=== PATIENT | female | born 1995 | race Caucasian/White ===

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

== ENCOUNTER → 2018-04-14 | Outpatient (CLI) | payer BC ==
--- NOTE | 2018-04-15 07:33 | US ---
EXAMINATION TYPE: US transvaginal DATE OF EXAM: 04/14/2018 COMPARISON: NONE CLINICAL HISTORY: N91.2 Amenorrhea. Patient states not having had a period since February, TECHNIQUE: Transvaginal (TV). Date of LMP: 02/18/2019, G0 EXAM MEASUREMENTS: Uterus: 6.4 x 3.0 x 3.2 cm Endometrial Stripe: 0.3 cm Right Ovary: 2.8 x 1.6 x 1.4 cm Left Ovary: 2.6 x 1.6 x 1.3 cm 1. Uterus: Anteverted wnl 2. Endometrium: wnl 3. Right Ovary: wnl 4. Left Ovary: wnl 5. Bilateral Adnexa: wnl 6. Posterior cul-de-sac: no free fluid Cervix- fluid seen within cervical canal IMPRESSION: No significant abnormality seen. Small amount of fluid within the endocervical canal.
== END | disposition home or self-care (01) ==
LOC: RADUSWWP 15:22
PROVIDERS: ATTEND Family Medicine
DX: N91.2 Amenorrhea, unspecified (principal)
CPT/HCPCS: 76830

== ENCOUNTER 2019-01-22 17:51 | Outpatient (CLI) | payer BC ==
[2019-01-22 19:43] VITALS: BP 130/60; PULSE 86; RESP 15; TEMP 98.2
--- NOTE | 2019-01-23 07:16 | P.MSEPDOC ---
Presenting Problems - Arrival Data Date of Arrival on Unit: 01/22/19 Time of Arrival on Unit: 17:51 Mode of Transport: Wheelchair - Complaint OB-Reason for Admission/Chief Complaint: Acute Nausea/Vomiting Comment: Pt here with complaints of abdominal cramping and upper abdominal tightness Medical History - Information : 1 Para: 0 Term: 0 : 0 Abortions: Spontaneous or Elective: 0 Number of Living Children: 0 - Gestational Age Gestational Age by VI (wks/days): 26 Weeks and 3 Days Review of Systems - Review of Systems Constitutional: No problems Breast: No problems ENT: No problems Cardiovascular: No problems Respiratory: No problems Gastrointestinal: No problems Genitourinary: No problems Musculoskeletal: No problems Neurological: No problems Skin: No problems Vital Signs - Temperature Temperature: 98.2 F Temperature Source: Temporal Artery Scan - Pulse Pulse Oximetery Pulse Rate: 86 Pulse Assessment Method: Pulse Oximetry - Respirations Respiratory Rate: 15 Oxygen Delivery Method: Room Air O2 Sat by Pulse Oximetry: 99 - Blood Pressure Right Arm Blood Pressure: 130/60 Blood Pressure Mean: 83 Blood Pressure Source: Automatic Cuff Medical Screen Scoring (Pre) - Cervical Exam Dilation: 0 cm = 0 Membranes: Intact - Uterine Contractions Frequency: N/A Duration: N/A Intensity: N/A - Maternal Vital Signs Maternal Temperature: N/A Maternal Blood Pressure: N/A Signs of Preeclampsia: Nausea/Vomiting = 1, Epigastric Pain = 1 Maternal Respirations: N/A - Maternal Trauma Maternal Trauma: N/A - Assessment - Baby A Baseline FHR: 140 Heart Rate - NICHD Category: Category I (Normal) = 0 NST: Reactive Position: N/A Station: N/A - Total Score - Baby A Total Score - Baby A: 2 - Total Score - Baby B Total Score - Baby B: 2 - Total Score - Baby C Total Score - Baby C: 2 - Level of Risk - Baby A Level of Risk - Baby A: Low (0-5) - Level of Risk - Baby B Level of Risk - Baby B: Low (0-5) - Level of Risk - Baby C Level of Risk - Baby C: Low (0-5) Physician Notification (Pre) - Physician Notified Physician Notified Date: 01/22/19 Physician Notified Time: 18:15 New Order Received: Yes - Notification Comment Comment: Report given to Sanjay per previous RN. Orders received to obtain FFN, check patient, and observe for an hour. If everything is within normal limits and there are no further concerns patient may be discharged home. Disposition - Disposition OB Disposition: Discharge to home, Written follow up instructions reviewed Discharge Date: 01/22/19 Discharge Time: 19:40 I agree with the RN Medical Screening Exam: Yes Risk & Benefit of care provided described in d/c instruction: Yes Diagnosis: UNSPECIFIED ABDOMINAL PAIN (Patient seen in triage with complaints of upper abdominal discomfort. There was no evidence of labor or obstetrical concerns. Patient therefore was evaluated and then sent to the ER to have further evaluation of her epigastric discomfort.)
== END 2019-01-22 19:40 | disposition home or self-care (01) ==
LOC: FBPOP 17:51
PROVIDERS: ATTEND Obstetrics & Gynecology
DX: O99.89 Other specified diseases and conditions complicating pregnancy, childbirth and the puerperium (principal); R10.9 Unspecified abdominal pain; Z3A.26 26 weeks gestation of pregnancy
CPT/HCPCS: 99213

== ENCOUNTER 2019-03-30 11:43 | Outpatient (CLI) | payer BC ==
[2019-03-30 12:06] VITALS: RESP 16; TEMP 97.8
[2019-03-30 12:27] LABS: Basophils % (A) 0 %; Eosinophils # (A) 0.2 k/uL (0-0.7); Eosinophils % (A) 3 %; HCT 34.5 % (34.0-46.0); HGB 11.2 gm/dL (11.4-16.0); Lymphocytes # (A) 1.9 k/uL (1.0-4.8); Lymphocytes % (A) 21 %; MCH 27.5 pg (25.0-35.0); MCHC 32.6 g/dL (31.0-37.0); MCV 84.5 fL (80.0-100.0); Mean Platelet Volume 8.1; Monocytes # (A) 0.4 k/uL (0-1.0); Monocytes % (A) 5 %; Neutrophils # (A) 6.3 k/uL (1.3-7.7); Neutrophils % (A) 70 %; Platelet Count 251 k/uL (150-450); RBC 4.08 m/uL (3.80-5.40); RDW 13.1 % (11.5-15.5); WBC 9.1 k/uL (3.8-10.6)
[2019-03-30 12:34] VITALS: PULSE 86
[2019-03-30 12:46] LABS: ALT 11 U/L (4-34); AST 17 U/L (14-36); African American GFR (CKD) >90 (>60 ml/min/1.73 sqM); Blood Urea Nitrogen 8 mg/dL (7-17); LDH 345 U/L (313-618); Non-African American GFR(CKD) >90 (>60 ml/min/1.73 sqM); Uric Acid 5.8 mg/dL (3.7-7.4)
[2019-03-30 13:13] LABS: Appearance,Urine Clear (Clear); Bacteria,Urine Rare /hpf; Bilirubin,Urine Negative (Negative); Blood,Urine Small (Negative); Color,Urine Yellow; Glucose,Urine (UA) Negative (Negative); Ketones,Urine Negative (Negative); Leukocyte Esterase,Urine Moderate (Negative); Mucus,Urine Few /hpf; Nitrite,Urine Negative (Negative); PH, Urine 6.5 (5.0-8.0); Protein,Urine Trace (Negative); Specific Gravity,Urine 1.023 (1.001-1.035); Squamous Epithelial Cell,Urine 6 /hpf (0-4); Urobilinogen,Urine <2.0 mg/dL (<2.0); WBC,Urine 8 /hpf (0-5)
[2019-03-30 13:30] VITALS: BP 113/59
== END 2019-03-30 13:51 | disposition home or self-care (01) ==
LOC: FBPOP 11:43
PROVIDERS: ATTEND Obstetrics & Gynecology
DX: O13.9 Gestational [pregnancy-induced] hypertension without significant proteinuria, unspecified trimester (principal); Z3A.00 Weeks of gestation of pregnancy not specified
CPT/HCPCS: 59025; 81001; 82565; 82570; 83615; 84156; 84450; 84460; 84520; 84550; 85025; 99215

== ENCOUNTER 2019-04-07 05:51 | Inpatient (IN) | payer BC, OTHER ==
--- NOTE | 2019-04-06 19:06 | P.HPOB ---
History of Present Illness H&P Date: 04/06/19 Chief Complaint: Gestational hypertension This is a 23 y.o. female, 1, para 0, with an estimated date of confinement of 04/27/2019, estimated gestational age of 37-1/7 weeks, who presents for induction of labor due to gestational hypertension. She has been experiencing elevated blood pressures for the last week. She was sent to triage for workup last week and all of her labs were normal. Her blood pressure today is 140/80 with negative protein. She denies headaches, but gets occasional blurry vision. She has irregular contractions, but does feel pressure. labs: GC/Chlamydia/Trichomonas-neg Hepatitis B surface antigen-neg RPR-NR Rubella-immune Blood type-A+ Antibody screen-neg HIV-NR Hemoglobin-11.4 Random glucose-79 Quad screen-neg 1 hr. 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 Works at [employer] Review of Systems Constitutional: Denies chills, Denies fever Eyes: bilateral blurred vision (occ), denies pain Ears, nose, mouth and throat: Denies headache, Denies sore throat Cardiovascular: Denies chest pain, Denies shortness of breath Respiratory: Denies cough Gastrointestinal: Reports abdominal pain (irreg. ctxs), Denies nausea Genitourinary: Reports pelvic pain, Reports Musculoskeletal: Reports low back pain Integumentary: Denies pruritus, Denies rash Neurological: Denies numbness, Denies weakness Psychiatric: Denies anxiety, Denies depression Past Medical History Additional Past Medical History / Comment(s): Asthma History of Any Multi-Drug Resistant Organisms: None Reported Past Surgical History: No Surgical Hx Reported Past Anesthesia/Blood Transfusion Reactions: No Reported Reaction Past Psychological History: No Psychological Hx Reported Smoking Status: Never smoker Past Alcohol Use History: None Reported Past Drug Use History: None Reported Medications and Allergies Home Medications Medication Instructions Recorded Confirmed Type Pnv No.95/Ferrous Fum/Folic AC 1 tab PO DAILY 01/22/19 03/30/19 History [ Multivitamin Tablet] Allergies Allergy/AdvReac Type Severity Reaction Status Date / Time No Known Allergies Allergy Verified 03/30/19 11:57 Exam Osteopathic Statement: *. No significant issues noted on an osteopathic struct ural exam other than those noted in the History and Physical/Consult. HEENT: within normal limits Heart: regular rate and rhythm Lungs: clear to auscultation bilaterally Abdomen: Cervix 1.5 cm/70%/-1 heart tones: 140s by doppler Extremities: Neg. Homans, trace edema Assessment and Plan (1) 37 weeks gestation of Status: Acute Code(s): Z3A.37 - 37 WEEKS GESTATION OF SNOMED Code(s): 63173756 (2) Gestational hypertension Status: Acute Code(s): O13.9 - GESTATIONAL HTN W/O SIGNIFICANT PROTEINURIA, UNSP TRIMESTER SNOMED Code(s): 611389842 Plan: Admission for oxytocin induction of labor. Expectant management. Monitor blood pressures.
[~2019-04-07 05:51] MED LIST: KETOROLAC 30 MG/ML 1 ML VIAL ONE; MORPHINE SULFATE (PF) 0.3 MG/0.3 ML SYR ONE; ONDANSETRON 4 MG/2 ML VIAL ONE; OXYTOCIN 10 UNIT/ML 1 ML VIAL ONE
[2019-04-07] MEDS ORDERED: CARBOPROST TROMETHAMINE 250 MCG/ML 1 ML AMP IM PRN (06:03)
[2019-04-07] MEDS ORDERED: LIDOCAINE 0.5% (PF) 5 MG/ML (50 ML SDV) SQ PRN (06:03)
[2019-04-07] MEDS ORDERED: METHYLERGONOVINE 0.2 MG/ML 1 ML AMP IM PRN (06:03)
[2019-04-07] MEDS ORDERED: LIDOCAINE 1% 20 ML VIAL (10MG/ML) FOR IV START INTRADERMA PRN (06:03)
[2019-04-07] MEDS ORDERED: TERBUTALINE 1 MG/ML VIAL SQ PRN (06:03)
[2019-04-07] MEDS ORDERED: OXYTOCIN 30 UNITS/500 ML NS 30 UNIT in SALINE 1 500ML.BAG IV SCH (06:03)
[2019-04-07] MEDS ORDERED: OXYTOCIN 10 UNIT/ML 1 ML VIAL IM PRN (06:03)
[2019-04-07] MEDS: LACTATED RINGERS 1,000 ML IV SCH ×2 (06:11→15:31)
[2019-04-07 06:21] LABS: Basophils # (A) 0.2 k/uL (0-0.2); Basophils % (A) 1 %; Eosinophils # (A) 0.5 k/uL (0-0.7); Eosinophils % (A) 4 %; HGB 12.2 gm/dL (11.4-16.0); Lymphocytes # (A) 2.9 k/uL (1.0-4.8); Lymphocytes % (A) 24 %; MCH 27.9 pg (25.0-35.0); MCV 84.6 fL (80.0-100.0); Mean Platelet Volume 8.8; Monocytes # (A) 0.6 k/uL (0-1.0); Monocytes % (A) 5 %; Neutrophils # (A) 7.7 k/uL (1.3-7.7); Neutrophils % (A) 63 %; Platelet Count 272 k/uL (150-450); RBC 4.38 m/uL (3.80-5.40); RDW 13.3 % (11.5-15.5); WBC 12.2 k/uL (3.8-10.6)
[2019-04-07 07:05] LABS: ALT 9 U/L (4-34); AST 17 U/L (14-36); African American GFR (CKD) >90 (>60 ml/min/1.73 sqM); Blood Urea Nitrogen 12 mg/dL (7-17); LDH 403 U/L (313-618); Non-African American GFR(CKD) >90 (>60 ml/min/1.73 sqM); Uric Acid 5.9 mg/dL (3.7-7.4)
[2019-04-07 08:36] LABS: Glucose,Urine (UA) Negative (Negative); Ketones,Urine Negative (Negative); Protein,Urine 1+ (Negative)
[2019-04-07 09:38] LABS: Creatinine,Urine Random 115.7 mg/dL; Protein/Creatinine Ratio,Urine 0.2
[2019-04-07] MEDS: BUTORPHANOL 1 MG/ML 1 ML VIAL IV PRN ×2 (11:36→15:29)
[2019-04-07] MEDS ORDERED: CITRIC ACID-SODIUM CITRATE 15 ML CUP PO ONE (19:04)
[2019-04-07] MEDS ORDERED: ONDANSETRON 4 MG/2 ML VIAL ONE (19:18)
[2019-04-07] MEDS ORDERED: MORPHINE SULFATE (PF) 0.3 MG/0.3 ML SYR ONE (19:18)
[2019-04-07] MEDS ORDERED: OXYTOCIN 10 UNIT/ML 1 ML VIAL ONE (19:18)
[2019-04-07] MEDS ORDERED: KETOROLAC 30 MG/ML 1 ML VIAL ONE (19:18)
--- NOTE | 2019-04-07 20:11 | P.OP ---
Date of Procedure: 04/07/19 Preoperative Diagnosis: 1. Intrauterine at 37 and one sevenths weeks. 2. Gestational hypertension. 3. Failure to progress. Postoperative Diagnosis: Same Procedure(s) Performed: Primary low transverse section Anesthesia: spinal (Duramorph) Surgeon: Vikki Jacobo Well Logger #1: Swetha De Dios Estimated Blood Loss (ml): 900 Pathology: other (Placenta) Condition: stable Disposition: floor Indications for Procedure: This is a 23-year-old female 1 para 0 at 37 and one sevenths weeks who presented for induction of labor secondary to gestational hypertension. She underwent oxytocin induction of labor with artificial rupture membranes. She reached a maximum of 4-1/2-5 cm with little to no change in approximately 6 hours despite adequate contractions. At this point the decision was made to proceed with section. I have discussed the risks, benefits, and alternative therapies for the above- mentioned procedure and for both sedation/anesthesia as well as necessary blood products administration, if indicated, as they pertain to this patient. The patient has indicated her understanding and acceptance of the risks and procedures discussed. Operative Findings: A viable female infant is noted in the vertex presentation with scores of 8 at 1 minute and 9 at 5 minutes and infant weight of 6 lbs. 3 oz. Normal uterus tubes and ovaries are noted. Description of Procedure: The patient is taken to the operating room where she is placed in the dorsal supine position with leftward tilt after spinal Duramorph anesthesia is given. She is prepped and draped in the normal sterile fashion. Skin was tested and found to be adequately anesthetized. A Pfannenstiel skin incision was made with a scalpel. A second knife was used to carry the incision down to the underlying layer of fascia. The fascia was nicked in the midline with a scalpel and then extended laterally bilaterally with Austin scissors. The anterior lip of the fascia was grasped with 2 Nancy clamps and then dissected off the underlying rectus muscle in the midline with Austin scissors. The inferior aspect of the fascial incision was grasped with 2 Nancy clamps and dissected off the un derlying rectus muscle and the midline with Austin scissors. Next the peritoneum layer was tented up with 2 hemostats and then entered sharply with the scalpel. The incision is extended superiorly and inferiorly with Metzenbaum scissors. Next a DeLee retractor is placed. The vesicouterine peritoneum is entered sharply with Metzenbaum scissors and extended laterally bilaterally with Metzenbaum scissors and then the bladder flap is pushed inferiorly. The lower uterine segment is incised in transverse fashion with the scalpel and then bluntly entered with a hemostat. Clear fluid is noted. The incision was then extended laterally bilaterally with 2 fingers. Next the 's head is delivered through the incision. Nose and mouth are bulb suctioned. The remainder of the is easily delivered and placed on mother's abdomen. Cord is clamped and cut. is taken to warmer by nursing staff. Uterine fundus is gently massaged and placenta is delivered manually. Uterus is exte riorized and cleared of all clots and debris. Uterine incision is closed with 0 Vicryl suture in a running locked fashion. A second layer of 0 Vicryl suture is used in a running fashion for hemostasis. Once adequate hemostasis as assured, the vesicouterine peritoneum is reapproximated with 2-0 Vicryl suture in a running fashion. Posterior cul-de-sac is suctioned of all clots and debris. Uterus is returned to the abdomen. Incision is noted to be hemostatic. Peritoneal layer is closed with 0 Vicryl suture in a running fashion. Muscle layer is reapproximated with 0 Vicryl suture in interrupted fashion. Fascia layer is then closed with 0 PDS suture with 2 sutures meeting in the midline and the knots buried in either side and in the midline. The subcutaneous tissue was then closed with 2-0 Vicryl suture. Skin layer was then closed with radha. All sponge and needle counts are correct. The patient is taken to recovery room in stable condition.
[2019-04-07] MEDS ORDERED: NALBUPHINE 10 MG/ML (1 ML AMP) IM ONE (20:15)
[2019-04-07] MEDS ORDERED: ACETAMINOPHEN TAB 325 MG TAB PO PRN (20:32)
[2019-04-07] MEDS ORDERED: diphenhydrAMINE 50 MG/ML 1 ML VIAL IVP PRN ×2 (20:32)
[2019-04-07] MEDS ORDERED: SIMETHICONE 80 MG CHEWABLE PO PRN (20:32)
[2019-04-07] MEDS ORDERED: KETOROLAC 30 MG/ML 1 ML VIAL IVP PRN (20:32)
[2019-04-07] MEDS ORDERED: ALBUTEROL NEBULIZED 2.5 MG/3 ML INHALATION PRN (20:32)
[2019-04-07] MEDS ORDERED: NALOXONE 0.4 MG/ML 1 ML VIAL IV PRN (20:32)
[2019-04-07] MEDS ORDERED: METOCLOPRAMIDE 5 MG/ML 2 ML VIAL IVP PRN (20:32)
[2019-04-07] MEDS ORDERED: OXYTOCIN 20 UNITS/1000 ML NS 1,000 ML IV SCH (20:32)
[2019-04-07] MEDS ORDERED: HYDROcodone/APAP 7.5-325MG 1 EACH TAB PO PRN (20:32)
[2019-04-07] MEDS ORDERED: WITCH HAZEL 1 EACH MED..PAD TOPICAL PRN (20:32)
[2019-04-07] MEDS ORDERED: HYDROCORTISONE 2.5% RECTAL CREAM 30 GM TUBE RECTAL PRN (20:32)
[2019-04-07] MEDS ORDERED: diphenhydrAMINE 50 MG CAP PO PRN (20:32)
[2019-04-07] MEDS ORDERED: LANOLIN CREAM 5 GM TUBE TOPICAL PRN (20:32)
[2019-04-07] MEDS ORDERED: ONDANSETRON 4 MG/2 ML VIAL IVP PRN (20:32)
[2019-04-07] MEDS ORDERED: HYDROcodone/APAP 5-325MG 1 EACH TAB PO PRN (20:32)
[2019-04-07] MEDS ORDERED: ZOLPIDEM 5 MG TAB PO PRN (20:32)
[2019-04-07] MEDS ORDERED: diphenhydrAMINE 25 MG CAP PO PRN (20:32)
[2019-04-07] MEDS ORDERED: NALBUPHINE 10 MG/0.5 ML (20 mL MDV) IM ONE (22:00)
[2019-04-08 07:11] LABS: HCT 27.4 % (34.0-46.0); MCH 27.9 pg (25.0-35.0); MCHC 32.7 g/dL (31.0-37.0); MCV 85.4 fL (80.0-100.0); Mean Platelet Volume 8.4; Platelet Count 237 k/uL (150-450); RBC 3.21 m/uL (3.80-5.40); RDW 13.4 % (11.5-15.5); WBC 17.3 k/uL (3.8-10.6)
[2019-04-08] MEDS: SENNOSIDES-DOCUSATE SODIUM 1 EACH TAB PO SCH ×2 (07:34→22:13)
--- NOTE | 2019-04-08 08:03 | P.PN ---
Progress Note - Text 04/08 730am 23-year-old female status post with a spinal anesthetic and Duramorph. Patient was seen and evaluated this morning with a pain score of 1. No complains of nausea vomiting which she does have pruritus this morning. She was advised that this would last for 24 hours and offered and Benadryl .
--- NOTE | 2019-04-08 08:38 | P.PNOBGPC ---
Subjective - Subjective Principal diagnosis: Status post primary section postoperative day #1 Interval history: Patient is doing well. She is bottle feeding. Her pain is fairly well controlled. She has not passed flatus or bowel movement yet. She did try to urinate but was unable to so far. She will try again shortly. Lochia is decreasing. Patient reports: Reports appetite normal, Reports pain well controlled, Reports ambulating normally : doing well, bottle feeding Objective - Vital Signs Latest vital signs: Vital Signs Temp Pulse Resp BP Pulse Ox 04/08/19 07:53 98.2 F 95 17 107/58 04/08/19 04:00 98.3 F 103 H 16 137/59 04/08/19 00:00 97.6 F 101 H 16 120/83 04/07/19 22:19 87 16 114/54 04/07/19 21:49 97.1 F L 90 16 114/63 04/07/19 21:19 97.6 F 84 16 110/55 04/07/19 21:04 97.3 F L 84 16 125/56 04/07/19 20:49 97.1 F L 81 16 126/73 98 04/07/19 20:34 96.5 F L 80 16 119/59 04/07/19 20:19 96.9 F L 85 16 121/57 99 Intake and Output 04/07/19 04/08/19 04/08/19 22:59 06:59 14:59 Output Total 800 Balance -800 Output: Urine 800 Uretheral (Cardozo) 500 - Exam Extremities: Present: normal. Absent: tenderness Abdomen: Present: normal appearance, soft (Date bowel sounds 4). Absent: distention, tenderness Incision: Present: normal, dry, intact. Absent: erythematous Uterus: Present: normal, firm. Absent: tenderness - Labs Labs: Abnormal Lab Results - Last 24 Hours (Table) 04/07/19 04/07/19 04/08/19 Range/Units 07:40 07:40 06:41 WBC 17.3 H (3.8-10.6) k/uL RBC 3.21 L (3.80-5.40) m/uL Hgb 9.0 L D (11.4-16.0) gm/dL Hct 27.4 L (34.0-46.0) % Neutrophils # 14.1 H (1.3-7.7) k/uL Urine Protein 1+ H (Negative) U Random Total Protein 25 H (<12) mg/dL Assessment and Plan Assessment: Status post primary section postoperative day #1 Gestational hypertension-currently normal blood pressures (1) 37 weeks gestation of Current Visit: No Status: Acute Code(s): Z3A.37 - 37 WEEKS GESTATION OF SNOMED Code(s): 27072601 (2) Gestational hypertension Current Visit: No Status: Acute Code(s): O13.9 - GESTATIONAL HTN W/O SIGNIFICANT PROTEINURIA, UNSP TRIMESTER SNOMED Code(s): 111160298 Plan: Continue with postoperative and care. If she is unable to urinate the next hour or 2, will straight cath.
[2019-04-08 15:05] LABS: Lymphocytes # (M) 2.25 k/uL (1.0-4.8); Monocytes # (M) 0.69 k/uL (0-1.0); Neutrophils # (M) 14.36 k/uL (1.3-7.7); Neutrophils % (M) 83 %; Nucleated Red Blood Cells 0 /100 WBC (0-0); Total Cells Counted 100
[2019-04-08] MEDS: IBUPROFEN 600 MG TAB PO PRN ×2 (17:16→23:34)
[2019-04-08] MEDS: LACTATED RINGERS 1,000 ML IV SCH ×2 (22:13→22:14)
[2019-04-09] MEDS: SENNOSIDES-DOCUSATE SODIUM 1 EACH TAB PO SCH (08:24)
[2019-04-09] MEDS: IBUPROFEN 600 MG TAB PO PRN ×2 (08:24→14:24)
[2019-04-09 16:50] VITALS: BP 129/70; PULSE 84; RESP 18; TEMP 97.3
--- NOTE | 2019-04-10 07:58 | P.DS ---
Providers Date of admission: 04/07/19 05:51 Expected date of discharge: 04/09/19 Attending physician: Vikki Jacobo Primary care physician: Clarence Willingham - Discharge Diagnosis(es) (1) 37 weeks gestation of Status: Resolved (2) Gestational hypertension Status: Acute (3) Status post primary low transverse section Status: Acute Hospital Course: Patient presented for induction of labor at 37 weeks due to gestational hypertension. She underwent a primary low transverse for failure to progress. Postoperatively her course was uncomplicated. Her blood pressures were not elevated during her period. She was discharged home postoperative day #2 in stable condition to follow-up with Dr. Jacobo in one week. Patient Condition at Discharge: Good Plan - Discharge Summary New Discharge Prescriptions: New Ibuprofen [Motrin] 600 mg PO Q6HR PRN #30 tab PRN Reason: Mild Pain Or Fever >= 100.5 HYDROcodone/APAP 7.5-325MG [[place] 7.5-325] 1 each PO Q6H PRN #12 tab PRN Reason: Severe Pain No Action Pnv No.95/Ferrous Fum/Folic AC [ Multivitamin Tablet] 1 tab PO DAILY Ferrous Sulfate [Feosol] 325 mg PO DAILY Albuterol Inhaler [Ventolin Hfa Inhaler] 1 - 2 puff INHALATION RT-Q6H PRN PRN Reason: Dyspnea Discharge Medication List Pnv No.95/Ferrous Fum/Folic AC [ Multivitamin Tablet] 1 tab PO DAILY 01/22/19 [History] Albuterol Inhaler [Ventolin Hfa Inhaler] 1 - 2 puff INHALATION RT-Q6H PRN 04/07/19 [History] Ferrous Sulfate [Feosol] 325 mg PO DAILY 04/07/19 [History] HYDROcodone/APAP 7.5-325MG [[place] 7.5-325] 1 each PO Q6H PRN #12 tab 04/09/19 [Rx] Ibuprofen [Motrin] 600 mg PO Q6HR PRN #30 tab 04/09/19 [Rx] Follow up Appointment(s)/Referral(s): Lindsay Kwan DO [Doctor of Osteopathic Medicine] - 1 Week Discharge Disposition: HOME SELF-CARE
== END 2019-04-09 16:15 | disposition home or self-care (01) | DRG 788 ==
LOC: 4FBP 05:51
PROVIDERS: ADMIT Obstetrics & Gynecology; ATTEND Obstetrics & Gynecology
PROC: 10D00Z1 Extraction of Products of Conception, Low, Open Approach (ICD-10-PCS; principal; 2019-04-07 19:00)
DX: O13.4 Gestational [pregnancy-induced] hypertension without significant proteinuria, complicating childbirth (principal); O99.52 Diseases of the respiratory system complicating childbirth; J45.909 Unspecified asthma, uncomplicated; L29.9 Pruritus, unspecified; O62.2 Other uterine inertia; Z37.0 Single live birth; Z3A.37 37 weeks gestation of pregnancy
CPT/HCPCS: 81003; 82565; 82570; 83615; 84156; 84450; 84460; 84520; 84550; 85025; 86850; 86900; 86901; 88307

== ENCOUNTER 2020-03-12 17:52 | Emergency (ER) | payer BC, OTHER ==
[2020-03-12 18:03] VITALS: TEMP 98.2
[2020-03-12] MEDS ORDERED: SODIUM CHLORIDE 0.9% 1,000 ML IV ONE (19:30)
[2020-03-12 19:39] LABS: Appearance,Urine Cloudy (Clear); Bacteria,Urine Rare /hpf; Bilirubin,Urine Negative (Negative); Blood,Urine Negative (Negative); Color,Urine Yellow; Glucose,Urine (UA) Negative (Negative); Hyaline Casts,Urine 1 /lpf (0-2); Ketones,Urine Negative (Negative); Leukocyte Esterase,Urine Large (Negative); Mucus,Urine Few /hpf; Nitrite,Urine Negative (Negative); PH, Urine 5.5 (5.0-8.0); Protein,Urine 1+ (Negative); RBC,Urine 1 /hpf (0-5); Specific Gravity,Urine 1.037 (1.001-1.035); Squamous Epithelial Cell,Urine 17 /hpf (0-4); Urobilinogen,Urine <2.0 mg/dL (<2.0); WBC,Urine 7 /hpf (0-5)
[2020-03-12 20:02] LABS: Basophils # (A) 0.1 k/uL (0-0.2); Basophils % (A) 1 %; Eosinophils # (A) 0.5 k/uL (0-0.7); Eosinophils % (A) 5 %; HCT 37.5 % (34.0-46.0); HGB 12.5 gm/dL (11.4-16.0); Lymphocytes # (A) 2.8 k/uL (1.0-4.8); Lymphocytes % (A) 28 %; MCH 26.7 pg (25.0-35.0); MCHC 33.3 g/dL (31.0-37.0); Mean Platelet Volume 7.5; Monocytes # (A) 0.4 k/uL (0-1.0); Monocytes % (A) 4 %; Neutrophils # (A) 5.9 k/uL (1.3-7.7); Neutrophils % (A) 61 %; Platelet Count 321 k/uL (150-450); RBC 4.69 m/uL (3.80-5.40); RDW 14.2 % (11.5-15.5); WBC 9.8 k/uL (3.8-10.6)
--- NOTE | 2020-03-12 20:10 | ED ---
Abdominal Pain HPI - General Chief Complaint: Abdominal Pain Stated Complaint: 8 wks preg/cramping Time Seen by Provider: 03/12/20 19:22 Source: patient Mode of arrival: ambulatory Limitations: no limitations - History of Present Illness Initial Comments: 24-year-old female patient who is presents to the emergency department today for evaluation of suprapubic cramping for the last couple of days. Patient is approximately 8 weeks . She has had some labs done by her primary care physician but is unsure which ones. She will be seeing Dr. Jacobo who recommended she come to the emergency department for evaluation. Patient denies any abnormal vaginal bleeding or discharge. Denies having any ultrasound at this time. Denies hematuria, dysuria, urinary frequency, urinary urgency. Denies nausea or vomiting. Patient denies any recent rash, fever, chills, cough, shortness of breath, diarrhea, constipation, back pain, numbness, tinglin g, dizziness, weakness, headache, visual changes, or any other complaints. - Related Data Home Medications Medication Instructions Recorded Confirmed Pnv No.95/Ferrous Fum/Folic AC 1 tab PO DAILY 01/22/19 04/07/19 [ Multivitamin Tablet] Albuterol Inhaler (Mhu) [Ventolin 1 - 2 puff INHALATION RT-Q6H PRN 04/07/19 04/07/19 Hfa Inhaler] Ferrous Sulfate [Feosol] 325 mg PO DAILY 04/07/19 04/07/19 Previous Rx's Medication Instructions Recorded HYDROcodone/APAP 7.5-325MG [[place] 1 each PO Q6H PRN #12 tab 04/09/19 7.5-325] Ibuprofen [Motrin] 600 mg PO Q6HR PRN #30 tab 04/09/19 Cephalexin [Keflex] 500 mg PO BID #14 cap 03/12/20 Allergies Allergy/AdvReac Type Severity Reaction Status Date / Time No Known Allergies Allergy Verified 03/12/20 18:03 Review of Systems ROS Statement: Those systems with pertinent positive or pertinent negative responses have been documented in the HPI. ROS Other: All systems not noted in ROS Statement are negative. Past Medical History Past Medical History: Asthma Additional Past Medical History / Comment(s): Asthma History of Any Multi-Drug Resistant Organisms: None Reported Past Surgical History: No Surgical Hx Reported Past Anesthesia/Blood Transfusion Reactions: No Reported Reaction Past Psychological History: Anxiety, Depression Smoking Status: Never smoker Past Alcohol Use History: None Reported Past Drug Use History: None Reported - Past Family History Mother Family Medical History: No Reported History Father Family Medical History: Asthma General Exam Limitations: no limitations General appearance: alert, in no apparent distress, other (Physical well-dev eloped, well-nourished adult female patient in no acute distress. Vital signs upon presentation are temperature 98.2F, pulse 96, respirations 18, blood pressure 124/90, pulse ox 100% on room air.) Respiratory exam: Present: normal lung sounds bilaterally. Absent: respiratory distress, wheezes, rales, rhonchi, stridor Cardiovascular Exam: Present: regular rate, normal rhythm, normal heart sounds. Absent: systolic murmur, diastolic murmur, rubs, gallop, clicks GI/Abdominal exam: Present: soft, tenderness (suprapubic), normal bowel sounds. Absent: distended, guarding, rebound, rigid Neurological exam: Present: alert, oriented X3, CN II-XII intact Psychiatric exam: Present: normal affect, normal mood Skin exam: Present: warm, dry, intact, normal color. Absent: rash Course Vital Signs 03/12/20 18:00 Temperature 98.2 F Pulse Rate 96 Respiratory 18 Rate Blood Pressure 124/90 O2 Sat by Pulse 100 Oximetry Medical Decision Making - Medical Decision Making 24-year-old female patient presents to the emergency department today for evaluation of suprapubic abdominal cramping. Patient reports being around 8 weeks . Denies vaginal bleeding or discharge. Physical examination did reveal mild suprapubic abdominal tenderness. Labs reviewed and revealed normal white blood cell, mild UTI with bacteriuria. HCG is pending. Ultrasound was obtained and shows a viable intrauterine measuring 8 weeks with no Acute processes seen. Upon reevaluation patient is resting comfortably. She will be discharged home with antibiotic for the urine. She is instructed to follow-up with her TRUST OPERATIONS ASSISTANT, she does have an appointment on Thursday. Return parameters were discussed in detail. She verbalizes understanding and agrees with this plan. - Lab Data Result diagrams: 03/12/20 19:58 03/12/20 19:52 Lab Results 03/12/20 03/12/20 03/12/20 Range/Units 19:23 19:52 19:58 WBC 9.8 (3.8-10.6) k/uL RBC 4.69 (3.80-5.40) m/uL Hgb 12.5 (11.4-16.0) gm/dL Hct 37.5 (34.0-46.0) % MCV 80.0 (80.0-100.0) fL MCH 26.7 (25.0-35.0) pg MCHC 33.3 (31.0-37.0) g/dL RDW 14.2 (11.5-15.5) % Plt Count 321 (150-450) k/uL MPV 7.5 Neutrophils % 61 % Lymphocytes % 28 % Monocytes % 4 % Eosinophils % 5 % Basophils % 1 % Neutrophils # 5.9 (1.3-7.7) k/uL Lymphocytes # 2.8 (1.0-4.8) k/uL Monocytes # 0.4 (0-1.0) k/uL Eosinophils # 0.5 (0-0.7) k/uL Basophils # 0.1 (0-0.2) k/uL Sodium 135 L (137-145) mmol/L Potassium 4.5 (3.5-5.1) mmol/L Chloride 106 (98-107) mmol/L Carbon Dioxide 23 (22-30) mmol/L Anion Gap 6 mmol/L BUN 10 (7-17) mg/dL Creatinine 0.45 L (0.52-1.04) mg/dL Est GFR (CKD-EPI)AfAm >90 (>60 ml/min/1.73 sqM) Est GFR (CKD-EPI)NonAf >90 (>60 ml/min/1.73 sqM) Glucose 84 (74-99) mg/dL Calcium 9.6 (8.4-10.2) mg/dL Total Bilirubin 0.4 (0.2-1.3) mg/dL AST 25 (14-36) U/L ALT 13 (4-34) U/L Alkaline Phosphatase 89 (38-126) U/L Total Protein 7.6 (6.3-8.2) g/dL Albumin 4.0 (3.5-5.0) g/dL Urine Color Yellow Urine Appearance Cloudy H (Clear) Urine pH 5.5 (5.0-8.0) Ur Specific [place] 1.037 H (1.001-1.035) Urine Protein 1+ H (Negative) Urine Glucose (UA) Negative (Negative) Urine Ketones Negative (Negative) Urine Blood Negative (Negative) Urine Nitrite Negative (Negative) Urine Bilirubin Negative (Negative) Urine Urobilinogen <2.0 (<2.0) mg/dL Ur Leukocyte Esterase Large H (Negative) Urine RBC 1 (0-5) /hpf Urine WBC 7 H (0-5) /hpf Ur Squamous Epith Cells 17 H (0-4) /hpf Urine Bacteria Rare H (None) /hpf Hyaline Casts 1 (0-2) /lpf Urine Mucus Few H (None) /hpf - Radiology Data Radiology results: report reviewed, image reviewed ultrasound was obtained. Report was reviewed in its entirety. Impression by Dr. Veronica shows single living intrauterine fetus with gestational age 8 weeks. No Acute process seen. The estimated date of delivery is 10/22/2020. Disposition Clinical Impression: Bacteriuria during , Abdominal pain during Disposition: HOME SELF-CARE Condition: Good Instructions (If sedation given, give patient instructions): Abdominal Pain in (ED), Urinary Tract Infection in (ED) Additional Instructions: Take medications as directed. Follow-up with your TR[employer] OPERATIONS ASSISTANT for recheck as soon as possible. Return to the emergency department for any new, worsening, or concerning symptoms. Prescriptions: Cephalexin [Keflex] 500 mg PO BID #14 cap Is patient prescribed a controlled substance at d/c from ED?: No Referrals: Clarence Willingham MD [Primary Care Provider] - 1-2 days Vikki Jacobo DO [Doctor of Osteopathic Medicine] - 1-2 days Time of Disposition: 20:53
[2020-03-12 20:13] LABS: ALT 13 U/L (4-34); AST 25 U/L (14-36); African American GFR (CKD) >90 (>60 ml/min/1.73 sqM); Alkaline Phosphatase 89 U/L (38-126); Anion Gap 6 mmol/L; Blood Urea Nitrogen 10 mg/dL (7-17); Calcium 9.6 mg/dL (8.4-10.2); Carbon Dioxide 23 mmol/L (22-30); Chloride 106 mmol/L (98-107); Glucose 84 mg/dL (74-99); Non-African American GFR(CKD) >90 (>60 ml/min/1.73 sqM); Potassium 4.5 mmol/L (3.5-5.1); Sodium 135 mmol/L (137-145); Total Bilirubin 0.4 mg/dL (0.2-1.3); Total Protein 7.6 g/dL (6.3-8.2)
--- NOTE | 2020-03-12 20:48 | US ---
EXAMINATION TYPE: Transabdominal DATE OF EXAM: 03/12/2020 8:20 PM COMPARISON: NONE CLINICAL HISTORY: Cramping; 8 weeks . cramping and nausea, no bleeding, , EXAM PERFORMED: OBTA EXAM MEASUREMENTS: GESTATIONAL AGE / DATING Physician Established: Not yet established Dates by LMP: (8 weeks/5 days) EDC: 10/17/2020 Dates by First Scan: No previous this is first scan Dates by Current Scan for: (8 weeks/0 days) EDC: 10/22/2020 MATERNAL ANATOMY Uterus: 9.3 x 6.2 x 5.0cm Right Ovary: 3.9 x 3.4 x 3.0cm Left Ovary: 1.9 x 1.7 x 1.8cm Post CDS / Adnexa: wnl Presence of free fluid: no Presence of corpus luteal cyst: 3.1cm right ovary Presence of subchorionic bleed: no GESTATION / SURVEY CRL: 1.5 (8 weeks/0 days) MSD: wnl Yolk Sac (normal less than 6mm): 0.3cm Heart Rate: 163 bpm Rhythm: Normal IUP: Viable IUP Date of LMP: 01/11/2020 Beta HcG (if available): pending IMPRESSION: Single living intrauterine fetus with gestational age 8 weeks. No complicating process seen. The VI is 10/22/2020.
[2020-03-12] MEDS ORDERED: cefTRIAXone IN SWFI 1,000 MG/10 ML SYRINGE IVP STA (20:52)
[2020-03-12 21:28] VITALS: BP 122/72; PULSE 74; RESP 20
== END 2020-03-12 21:24 | disposition home or self-care (01) ==
LOC: EC 17:52
DX: O26.891 Other specified pregnancy related conditions, first trimester (principal); O23.91 Unspecified genitourinary tract infection in pregnancy, first trimester; R82.71 Bacteriuria; O99.511 Diseases of the respiratory system complicating pregnancy, first trimester; J45.909 Unspecified asthma, uncomplicated; Z3A.08 8 weeks gestation of pregnancy
CPT/HCPCS: 36415; 80053; 85025; 81001; 84702; 76801; 99284; 96374; 96361; J0696

== ENCOUNTER 2020-04-22 13:13 | Emergency (ER) | payer BC, OTHER ==
[2020-04-22 13:23] VITALS: RESP 16; TEMP 98.1
--- NOTE | 2020-04-22 14:05 | ED ---
Female Urogenital HPI - General Source: patient Mode of arrival: ambulatory Limitations: no limitations <Queta Alba - Last Filed: 04/22/20 14:02> <Edouard Canales - Last Filed: 04/22/20 15:38> - General Chief complaint: Vaginal Bleeding Stated complaint: 14 wks preg - bleeding Time Seen by Provider: 04/22/20 13:34 - History of Present Illness Initial comments: Patient is a 24-year-old female presenting to emergency Department with complaints of vaginal bleeding that started this morning. Patient states it started out with just some small spotting this morning but throughout this day, it has progressed. Patient states she is having to wear a pad and when she is walking she feels like she is having more bleeding. She denies any clots. She is also having some lower abdominal cramping which is intermittent. Patient is currently 14 weeks , . Her RELIGIOUS STUDIES PROFESSOR is Dr. Jacobo. She has not had vaginal bleeding with this . She denies any fever or chills, no dysuria. She has no further complaints at this time. (Queta Alba) - Related Data Home Medications Medication Instructions Recorded Confirmed Pnv No.95/Ferrous Fum/Folic AC 1 tab PO DAILY 01/22/19 04/22/20 [ Multivitamin Tablet] Allergies Allergy/AdvReac Type Severity Reaction Status Date / Time No Known Allergies Allergy Verified 04/22/20 15:01 Review of Systems ROS Other: All systems not noted in ROS Statement are negative. <Queta Alba - Last Filed: 04/22/20 14:02> ROS Other: All systems not noted in ROS Statement are negative. <Edouard Canales - Last Filed: 04/22/20 15:38> ROS Statement: Those systems with pertinent positive or pertinent negative responses have been documented in the HPI. Past Medical History Past Medical History: Asthma Additional Past Medical History / Comment(s): Asthma History of Any Multi-Drug Resistant Organisms: None Reported Past Surgical History: No Surgical Hx Reported Past Anesthesia/Blood Transfusion Reactions: No Reported Reaction Past Psychological History: Anxiety, Depression Smoking Status: Never smoker Past Alcohol Use History: None Reported Past Drug Use History: None Reported - Past Family History Mother Family Medical History: No Reported History Father Family Medical History: Asthma <Queta Alba - Last Filed: 04/22/20 14:02> General Exam Limitations: no limitations External exam: Present: normal external exam Speculum exam: Present: vaginal bleeding, other (Cervical os appears closed). Absent: foreign body By manual exam: Present: normal by manual exam <Queta Alba Laury - Last Filed: 04/22/20 14:02> - General Exam Comments Initial Comments: GENERAL: Patient is well-developed and well-nourished. Patient is nontoxic and in no acute distress. HEAD: Atraumatic, normocephalic. EYES: Pupils equal round and reactive to light, extraocular movements intact, sclera anicteric, conjunctiva are normal. Eyelids were unremarkable. ENT: TMs normal, nares patent, oropharynx clear without exudates. Moist mucous membranes. NECK: Normal range of motion, supple without lymphadenopathy or JVD. LUNGS: Unlabored respirations. Breath sounds clear to auscultation bilaterally and equal. No wheezes rales or rhonchi. HEART: Regular rate and rhythm without murmurs, rubs or gallops. ABDOMEN: Mild lower abdominal cramping, no areas of significant pain. Soft, normoactive bowel sounds. No guarding, no rebound. No masses appreciated. MUSCULOSKELETAL: Normal extremities with adequate strength and normal range of motion, no pitting or edema. No clubbing or cyanosis. NEUROLOGICAL: Patient is alert and oriented x 3. Motor and sensory are also intact. Cranial nerves II through XII grossly intact. Symmetrical smile. Normal speech, normal gait. PSYCH: Normal mood, normal affect. SKIN: Warm, Dry, normal turgor, no rashes or lesions noted. (Queta Alba) Course Vital Signs 04/22/20 04/22/20 13:22 14:23 Temperature 98.1 F Pulse Rate 81 Respiratory 16 16 Rate Blood Pressure 129/80 O2 Sat by Pulse 97 Oximetry Medical Decision Making <Edouard Canales - Last Filed: 04/22/20 15:38> - Medical Decision Making Patient care was signed out to me by LEV Ruiz. Briefly patient is a 24-year-old female currently 14 weeks that had some mild vaginal bleeding starting earlier today. Sara had done a pelvic exam and verbalized to me there was only minimal vaginal bleeding. Physical exam was otherwise unremarkable. Urinalysis was obtained which did show 48 white blood cells. These could be reactive to the red blood cells were given history of patient will be treated with Keflex. Ultrasound was obtained which did reveal a single live intrauterine with estimated gestational age of 13 weeks 6 days. Patient does have a previous ABO Rh of a positive from 04/07/2019. I did reevaluate patient. No abdominal pain or tenderness. Denies any increase in vaginal bleeding. No lightheadedness. I discussed the this is a threatened miscarriage. I discussed she needs to see her RELIGIOUS STUDIES PROFESSOR tomorrow morning. However if she has worsening symptoms such as increased vaginal bleeding or pain or is passing tissue she should return to the emergency room. (Edouard Canales) - Lab Data Lab Results 04/22/20 Range/Units 14:16 Urine Color Red Urine Appearance Bloody H (Clear) Urine RBC >182 H (0-5) /hpf Urine WBC 48 H (0-5) /hpf Urine Mucus Many H (None) /hpf Disposition <Queta Alba - Last Filed: 04/22/20 14:02> Is patient prescribed a controlled substance at d/c from ED?: No Time of Disposition: 15:37 <Edouard Canales - Last Filed: 04/22/20 15:38> Clinical Impression: Threatened miscarriage, Vaginal bleeding during Disposition: HOME SELF-CARE Condition: Good Instructions (If sedation given, give patient instructions): Threatened Miscarriage (ED) Additional Instructions: Please call your RELIGIOUS STUDIES PROFESSOR tomorrow morning first thing. However if overnight you start to experience worsening vaginal bleeding, abdominal pain, or any other worsening or concerning symptoms you must return to the emergency room for additional evaluation. Referrals: Clarence Willingham MD [Primary Care Provider] - 1-2 days
[2020-04-22 14:43] LABS: Mucus,Urine Many /hpf; RBC,Urine >182 /hpf (0-5); WBC,Urine 48 /hpf (0-5)
[2020-04-22 14:44] LABS: Color,Urine Red
[2020-04-22 14:46] LABS: Appearance,Urine Bloody (Clear)
--- NOTE | 2020-04-22 15:12 | US ---
EXAMINATION TYPE: Transabdominal DATE OF EXAM: 04/22/2020 2:50 PM COMPARISON: US 03/12/2020 CLINICAL HISTORY: bleeding, cramping x today, 14 wks preg. EXAM PERFORMED: Transabdominal (TA) EXAM MEASUREMENTS: GESTATIONAL AGE / DATING Physician Established: (13 weeks/1 days) EDC: 10/27/2020 Dates by LMP: (13 weeks/1 days) EDC: 10/27/2020 Dates by First Scan: (13 weeks/6 days) EDC: 10/22/2020 Dates by Current Scan for: (13 weeks/6 days) EDC: 10/22/2020 MATERNAL ANATOMY Uterus: 14.8 x 6.4 x 8.9 cm Right Ovary: 2.9 x 1.7 x 1.9 cm Left Ovary: 2.6 x 1.7 x 2.1 cm Post CDS / Adnexa: wnl Presence of free fluid: no Presence of corpus luteal cyst: no Presence of subchorionic bleed: no GESTATION / SURVEY CRL: 7.9 cm (13 weeks/6 days) Heart Rate: 143 bpm Rhythm: Normal IUP: Viable IUP Date of LMP: 01/21/2020 Beta HcG (if available): Not available at this time Viable IUP with an VI of 10/22/2020 by this exam IMPRESSION: Single live intrauterine with estimated gestational age of 13 weeks 6 days.
[2020-04-22 16:00] VITALS: BP 115/64; PULSE 72
== END 2020-04-22 16:01 | disposition home or self-care (01) ==
LOC: EC 13:13
DX: O20.0 Threatened abortion (principal); Z3A.13 13 weeks gestation of pregnancy
CPT/HCPCS: 76801; 81001; 87086; 99284

== ENCOUNTER 2020-05-01 14:58 | Emergency (ER) | payer BC, OTHER ==
[2020-05-01 15:11] VITALS: BP 146/85; PULSE 100; RESP 16; TEMP 98.6
--- NOTE | 2020-05-01 16:43 | ED ---
Female Urogenital HPI - General Chief complaint: Vaginal Bleeding Stated complaint: 16 wks preg, vaginal bleeding Time Seen by Provider: 05/01/20 16:08 Source: patient, family Mode of arrival: ambulatory Limitations: no limitations - History of Present Illness Initial comments: Kortney is a 24-year-old female currently 16 weeks who presents the ER today for evaluation of vaginal bleeding. Patient has been seen for this twice during this she's had ultrasound confirms single intrauterine . She follows with Dr. Jacobo. She reports that yesterday she began having vaginal bleeding, today she has used 4 pads when she contacted Dr. Jacobo's office advised her to come to the ER for further evaluation. She denies any lig htheadedness or syncope. - Related Data Home Medications Medication Instructions Recorded Confirmed Pnv No.95/Ferrous Fum/Folic AC 1 tab PO DAILY 01/22/19 04/22/20 [ Multivitamin Tablet] Allergies Allergy/AdvReac Type Severity Reaction Status Date / Time No Known Allergies Allergy Verified 05/01/20 15:09 Review of Systems ROS Statement: Those systems with pertinent positive or pertinent negative responses have been documented in the HPI. ROS Other: All systems not noted in ROS Statement are negative. Past Medical History Past Medical History: Asthma Additional Past Medical History / Comment(s): Asthma History of Any Multi-Drug Resistant Organisms: None Reported Past Surgical History: No Surgical Hx Reported Past Anesthesia/Blood Transfusion Reactions: No Reported Reaction Past Psychological History: Anxiety, Depression Smoking Status: Never smoker Past Alcohol Use History: None Reported Past Drug Use History: None Reported - Past Family History Mother Family Medical History: No Reported History Father Family Medical History: Asthma General Exam - General Exam Comments Initial Comments: Physical Exam GENERAL: Patient is well-developed and well-nourished. Patient is nontoxic and well-hydrated and is in no distress. HENT: Normocephalic, Atraumatic. EYES: PERRL, EOMI No conjunctival pallor PULMONARY: Unlabored respirations. CARDIOVASCULAR: RRR Warm and well perfused extremities ABDOMEN: Non-distended SKIN: No rashes or bruising : Normal external genitalia Dark blood in vaginal vault Cervical os closed NEUROLOGIC: Alert and oriented Normal speech Normal gait MUSCULOSKELETAL: Moving all extremities with no apparent injury PSYCHIATRIC: No SI/HI Limitations: no limitations Course Vital Signs 05/01/20 15:09 Temperature 98.6 F Pulse Rate 100 Respiratory 16 Rate Blood Pressure 146/85 O2 Sat by Pulse 98 Oximetry Medical Decision Making - Medical Decision Making Bedside US with single intrauterine active fetus, HR 140s Patient reassured by findings Vitals stable, no active bleeding Patient will be discharged home to follow up with OB on an outpatient basis close return parameters were discussed patient was discharged home in stable condition - Lab Data Lab Results 05/01/20 Range/Units 16:47 Urine Color Light Red Urine Appearance Cloudy H (Clear) Urine pH 5.5 (5.0-8.0) Ur Specific [place] 1.033 (1.001-1.035) Urine Protein 1+ H (Negative) Urine Glucose (UA) Negative (Negative) Urine Ketones Trace H (Negative) Urine Blood Large H (Negative) Urine Nitrite Negative (Negative) Urine Bilirubin Negative (Negative) Urine Urobilinogen <2.0 (<2.0) mg/dL Ur Leukocyte Esterase Small H (Negative) Urine RBC >182 H (0-5) /hpf Urine WBC 75 H (0-5) /hpf Ur Squamous Epith Cells 5 H (0-4) /hpf Urine Mucus Occasional H (None) /hpf Disposition Clinical Impression: Vaginal bleeding during Disposition: HOME SELF-CARE Condition: Stable Additional Instructions: Contact Dr Jacobo today for follow up Return to the ER for any worsening bleeding, lightheadedness or shortness of breath Is patient prescribed a controlled substance at d/c from ED?: No Referrals: Clarence Willingham MD [Primary Care Provider] - 1-2 days
[2020-05-01 17:02] LABS: Appearance,Urine Cloudy (Clear); Bilirubin,Urine Negative (Negative); Blood,Urine Large (Negative); Color,Urine Light Red; Glucose,Urine (UA) Negative (Negative); Ketones,Urine Trace (Negative); Leukocyte Esterase,Urine Small (Negative); Mucus,Urine Occasional /hpf; Nitrite,Urine Negative (Negative); PH, Urine 5.5 (5.0-8.0); Protein,Urine 1+ (Negative); RBC,Urine >182 /hpf (0-5); Specific Gravity,Urine 1.033 (1.001-1.035); Squamous Epithelial Cell,Urine 5 /hpf (0-4); Urobilinogen,Urine <2.0 mg/dL (<2.0); WBC,Urine 75 /hpf (0-5)
== END 2020-05-01 17:19 | disposition home or self-care (01) ==
LOC: EC 14:58
DX: O46.92 Antepartum hemorrhage, unspecified, second trimester (principal); Z3A.16 16 weeks gestation of pregnancy; Z79.899 Other long term (current) drug therapy
CPT/HCPCS: 81001; 87086; 99284

== ENCOUNTER 2020-08-27 17:43 | Outpatient (CLI) | payer BC, OTHER ==
[2020-08-27 18:35] VITALS: BP 130/70; PULSE 91; RESP 16; TEMP 97
== END 2020-08-27 18:25 | disposition home or self-care (01) ==
LOC: FBPOP 17:43
PROVIDERS: ATTEND Obstetrics & Gynecology
DX: O13.3 Gestational [pregnancy-induced] hypertension without significant proteinuria, third trimester (principal); Z3A.32 32 weeks gestation of pregnancy
CPT/HCPCS: 99213

== ENCOUNTER 2020-09-01 14:02 | Outpatient (CLI) | payer BC, OTHER ==
[2020-09-01 14:16] VITALS: BP 132/74; PULSE 80; TEMP 97.8
[2020-09-01 15:15] VITALS: RESP 18
--- NOTE | 2020-09-02 08:18 | P.MSEPDOC ---
Presenting Problems - Arrival Data Date of Arrival on Unit: 09/01/20 Time of Arrival on Unit: 14:02 Mode of Transport: Ambulatory - Complaint OB-Reason for Admission/Chief Complaint: Possible Onset of Labor Comment: c/o contractions starting this morning. Medical History - Information : 2 Para: 1 Term: 1 : 0 Abortions: Spontaneous or Elective: 0 Number of Living Children: 1 - Gestational Age Gestational Age by VI (wks/days): 33 Weeks and 3 Days Review of Systems - Review of Systems Constitutional: No problems Breast: No problems ENT: No problems Cardiovascular: No problems Respiratory: No problems Gastrointestinal: No problems Genitourinary: No problems Musculoskeletal: No problems Neurological: No problems Skin: No problems Vital Signs - Temperature Temperature: 97.8 F Temperature Source: Temporal Artery Scan - Pulse Right Brachial Pulse Rate: 80 Pulse Assessment Method: Pulse Oximetry - Respirations Respiratory Rate: 18 Oxygen Delivery Method: Room Air O2 Sat by Pulse Oximetry: 98 - Blood Pressure Right Arm Blood Pressure: 132/74 Blood Pressure Mean: 93 Blood Pressure Source: Automatic Cuff Medical Screen Scoring - Cervical Exam Membranes: Intact - Assessment - Baby A Baseline FHR: 135 Heart Rate - NICHD Category: Category I (Normal) NST: Reactive Physician Notification - Physician Notified Physician Notified Date: 09/01/20 Physician Notified Time: 15:02 Physician: Dr. Destiny Lee Order Received: Yes (discharge home with follow up instructions.) Maternal Triage Index - Maternal Triage Index Presenting for scheduled procedure w/no complaint: No - Stat/Priority 1 Stat Priority 1: No - Urgent/Priority 2 Urgent Priority 2: No - Prompt/Priority 3 Prompt Priority 3: Yes Criteria Met for Priority 3: c/o contractions since early this morning. - Non-Urgent/Priority 4 Non-Urgent Priority 4: No Disposition - Disposition OB Disposition: Discharge to home Discharge Date: 09/01/20 Discharge Time: 15:06 I agree with the RN Medical Screening Exam: Yes Case reviewed; plan agreed upon as documented in EMR&OBIX.: Yes Diagnosis: FALSE LABOR BEFORE 37 COMPLETED WEEKS OF GEST, THIRD TRI
== END 2020-09-01 15:06 | disposition home or self-care (01) ==
LOC: FBPOP 14:02
PROVIDERS: ATTEND Obstetrics & Gynecology
DX: O47.03 False labor before 37 completed weeks of gestation, third trimester (principal); Z3A.33 33 weeks gestation of pregnancy
CPT/HCPCS: 59025; 99213

== ENCOUNTER 2020-09-15 | Outpatient (CLI) | payer BC, OTHER | END 2020-09-15 18:35 | disposition home or self-care (01) ==

== ENCOUNTER 2020-10-11 05:54 | Inpatient (IN) | payer BC, OTHER ==
[2020-10-08 15:20] VITALS: BMI 46.7
--- NOTE | 2020-10-10 16:29 | P.HPOB ---
History of Present Illness H&P Date: 10/10/20 Chief Complaint: Schedule repeat section with tubal ligation This is a 24 y.o. female, 2, para 1, with an estimated date of confinement of 10/17/2020, estimated gestational age of 39-1/7 weeks, who presents for scheduled repeat low transverse section with bilateral partial salpingectomy. She has good movement and irregular contractions. She has a history of gestational hypertension with her last and has been following with maternal medicine during this . She has been doing twice weekly NSTs and weekly BPP. labs: Hepatitis B surface antigen-neg RPR-NR [id number] Blood type-A+ Antibody screen-neg HIV-NR Hemoglobin-10.9 Quad-neg 1 hr. GTT-118 GBS-neg OB Hx; History of 1 due to failure to progress. Had gestational hypertension. Systems Eng Hx: No hx STDs Social Hx: . Works at [email or web address]. Review of Systems Constitutional: Denies chills, Denies fever Eyes: denies blurred vision, denies pain Ears, nose, mouth and throat: Denies headache, Denies sore throat Cardiovascular: Denies chest pain, Denies shortness of breath Respiratory: Denies cough Gastrointestinal: Reports abdominal pain (irregular contractions) Genitourinary: Reports pelvic pain, Reports Musculoskeletal: Reports low back pain Integumentary: Denies pruritus, Denies rash Neurological: Denies numbness, Denies weakness Psychiatric: Denies anxiety, Denies depression Past Medical History Past Medical History: Asthma, Hypertension Additional Past Medical History / Comment(s): high BP end of first , History of Any Multi-Drug Resistant Organisms: None Reported Past Surgical History: Section Past Anesthesia/Blood Transfusion Reactions: No Reported Reaction Past Psychological History: No Psychological Hx Reported Smoking Status: Never smoker Past Alcohol Use History: None Reported Past Drug Use History: None Reported - Past Family History Mother Family Medical History: No Reported History Father Family Medical History: Asthma Medications and Allergies Home Medications Medication Instructions Recorded Confirmed Type Pnv No.95/Ferrous Fum/Folic AC 1 tab PO DAILY 01/22/19 10/11/20 History [ Multivitamin Tablet] Albuterol Inhaler [Ventolin Hfa 2 puff INHALATION RT-TID PRN 09/15/20 10/11/20 History Inhaler] Allergies Allergy/AdvReac Type Severity Reaction Status Date / Time No Known Allergies Allergy Verified 10/08/20 15:13 Exam Osteopathic Statement: *. No significant issues noted on an osteopathic structural exam other than those noted in the History and Physical/Consult. HEENT: within normal limits Heart: regular rate in rhythm Lungs: clear to auscultation bilaterally Abdomen: , non-tender heart tones: 160's by doppler Cervix: 1.5 cm/70%/-1 Extremities: neg. Nikkie's Results Result Diagrams: 10/11/20 07:04 Assessment and Plan (1) 39 weeks gestation of Current Visit: No Status: Acute Code(s): Z3A.39 - 39 WEEKS GESTATION OF SNOMED Code(s): 47573826 (2) Family planning Current Visit: No Status: Acute Code(s): Z30.09 - ENCOUNTER FOR OTH GENERAL CNSL AND ADVICE ON CONTRACEPTION SNOMED Code(s): 714825050 Plan: Proceed with repeat low transverse section with bilateral partial salpingectomy. I have discussed the risks, benefits, and alternative therapies for the above- mentioned procedure and for both sedation/anesthesia as well as necessary blood products administration, if indicated, as they pertain to this patient. The patient has indicated her understanding and acceptance of the risks and procedures discussed.
[2020-10-11] MEDS ORDERED: ALBUTEROL NEBULIZED 2.5 MG/3 ML INHALATION PRN (06:07)
[2020-10-11] MEDS ORDERED: LIDOCAINE 1% (10MG/ML) FOR IV START INTRADERMA PRN (06:07)
[2020-10-11] MEDS ORDERED: CITRIC ACID-SODIUM CITRATE 15 ML CUP PO ONE (06:07)
[2020-10-11] MEDS ORDERED: LACTATED RINGERS 1,000 ML IV ONE (06:07)
[2020-10-11] MEDS ORDERED: ceFAZolin 3 GM in SODIUM CHLORIDE 0.9% 100 ML IVPB ONE (06:30)
[2020-10-11 07:25] LABS: Basophils # (A) 0.1 k/uL (0-0.2); Basophils % (A) 0 %; Eosinophils # (A) 0.4 k/uL (0-0.7); Eosinophils % (A) 4 %; HCT 33.5 % (34.0-46.0); HGB 10.9 gm/dL (11.4-16.0); Lymphocytes # (A) 2.6 k/uL (1.0-4.8); Lymphocytes % (A) 25 %; MCH 27.2 pg (25.0-35.0); MCHC 32.5 g/dL (31.0-37.0); MCV 83.5 fL (80.0-100.0); Mean Platelet Volume 8.4; Monocytes # (A) 0.5 k/uL (0-1.0); Monocytes % (A) 5 %; Neutrophils # (A) 6.7 k/uL (1.3-7.7); Neutrophils % (A) 63 %; Platelet Count 237 k/uL (150-450); RBC 4.01 m/uL (3.80-5.40); RDW 14.5 % (11.5-15.5); WBC 10.6 k/uL (3.8-10.6)
[2020-10-11] MEDS ORDERED: ONDANSETRON 4 MG/2 ML VIAL ONE (07:51)
[2020-10-11] MEDS ORDERED: PHENYLEPHRINE-0.9% NACL SYG 1,000 MCG/10 ML SYRINGE ONE (07:51)
[2020-10-11] MEDS ORDERED: KETOROLAC 15 MG/ML 1 ML VIAL ONE (07:51)
[2020-10-11] MEDS ORDERED: OXYTOCIN 30 UNITS/500 ML NS BAG IV ONE (07:51)
[2020-10-11] MEDS ORDERED: MORPHINE SULFATE (PF) 0.3 MG/0.3 ML SYR ONE (07:51)
[2020-10-11] MEDS ORDERED: ONDANSETRON 4 MG/2 ML VIAL IVP PRN ×2 (08:26→09:04)
[2020-10-11] MEDS ORDERED: diphenhydrAMINE 50 MG/ML 1 ML VIAL IVP PRN ×5 (08:26→17:38)
[2020-10-11] MEDS ORDERED: NALOXONE 0.4 MG/ML 1 ML VIAL IV PRN ×2 (08:26→09:04)
[2020-10-11] MEDS ORDERED: NALBUPHINE 10 MG/ML (1 ML AMP) IV PRN (08:26)
[2020-10-11] MEDS ORDERED: KETOROLAC 15 MG/ML 1 ML VIAL IVP PRN (08:26)
--- NOTE | 2020-10-11 08:38 | P.OP ---
Date of Procedure: 10/11/20 Preoperative Diagnosis: 1. Intrauterine at 39 and one sevenths weeks. 2. History of previous section. 3. Family planning. Postoperative Diagnosis: Same Procedure(s) Performed: Repeat low transverse section with bilateral partial salpingectomy Anesthesia: spinal (Duramorph) Surgeon: Vikki Jacobo Estimated Blood Loss (ml): 450 Pathology: other (Portions of right and left fallopian tubes) Condition: stable Disposition: floor Indications for Procedure: This is a 24-year-old female 2 para 1 at 39 and one sevenths weeks who presents for scheduled repeat section with bilateral partial salpingectomy. I have discussed the risks, benefits, and alternative therapies for the above- mentioned procedure and for both sedation/anesthesia as well as necessary blood products administration, if indicated, as they pertain to this patient. The patient has indicated her understanding and acceptance of the risks and procedures discussed. Operative Findings: A viable male infant is noted in the vertex presentation with scores of 9 at 1 minute and 10 at 5 minutes and infant weight of 8 lbs. 2 oz. Normal uterus tubes and ovaries are noted. Description of Procedure: The patient is taken to the operating room where she is placed in the dorsal supine position with leftward tilt after spinal Duramorph anesthesia is given. She is prepped and draped in the normal sterile fashion. Skin was tested and found to be adequately anesthetized. A Pfannenstiel skin incision was made with a scalpel through the previous laparotomy scar. A second knife was used to carry the incision down to the underlying layer of fascia. The fascia was nicked in the midline with a scalpel and then extended laterally bilaterally with Austin scissors. The anterior lip of the fascia was grasped with 2 Nancy clamps and then dissected off the underlying rectus muscle in the midline with Austin scissors. The inferior aspect of the fascial incision was grasped with 2 Nancy clamps and dissected off the underlying rectus muscle and the midline with Austin scissors. Next the peritoneum layer was tented up with 2 hemostats and then entered sharply with the scalpel. The incision is extended superiorly and inferiorly with Metzenbaum scissors. Next a DeLee retractor is placed. The vesicouterine peritoneum is entered sharply with Metzenbaum scissors and extended laterally bilaterally with Metzenbaum scissors and then the bladder flap is pushed inferiorly. The lower uterine segment is incised in transverse fashion with the scalpel and then bluntly entered with a hemostat. Clear fluid is noted. The incision was then extended laterally bilaterally with 2 fingers. Next the infant's head is delivered through the incision. Nose and mouth are bulb suctioned. The remainder of the is easily delivered and placed on mother's abdomen. Cord is clamped and cut. is taken to warmer by nursing staff. Uterine fundus is gently massaged and placenta is delivered manually. Uterus is exteriorized and cleared of all clots and debris. Uterine incision is closed with 0 Vicryl suture in a running locked fashion. Several interrupted stitches are placed for hemostasis. Next the right fallopian tube is grasped in the midportion with a hemostat. The mesosalpinx is entered with Bovie cautery. 0 Vicryl suture is tied 2 times around both the proximal and distal portion of the tube. The knuckle of tube was then removed with Metzenbaum scissors. The ends of the tube are cauterized with Bovie cautery. Good hemostasis is noted. Posterior cul-de-sac is suctioned of all clots and debris. Uterus is returned to the abdomen. Incision is noted to be hemostatic. Both tubal sites are noted to be hemostatic. Peritoneal layer is closed with 0 Vicryl suture in a running fashion. Muscle layer is reapproximated with 0 Vicryl suture in interrupted fashion. Fascia layer is then closed with 0 PDS suture with 2 sutures meeting in the midline and the knots buried in either side and in the midline. The subcutaneous tissue was then closed with 2-0 Vicryl suture. Skin layer was then closed with radha. All sponge and needle counts are correct. The patient is taken to recovery room in stable condition.
[2020-10-11] MEDS ORDERED: LANOLIN CREAM 5 GM TUBE TOPICAL PRN (09:04)
[2020-10-11] MEDS ORDERED: SENNOSIDES-DOCUSATE SODIUM 1 EACH TAB PO SCH (09:04)
[2020-10-11] MEDS ORDERED: HYDROmorphone 2 MG TAB PO PRN ×4 (09:04→17:38)
[2020-10-11] MEDS ORDERED: OXYTOCIN 30 UNITS/500 ML NS 30 UNIT in SALINE 1 500ML.BAG IV SCH (09:04)
[2020-10-11] MEDS ORDERED: ZOLPIDEM 5 MG TAB PO PRN ×2 (09:04→17:38)
[2020-10-11] MEDS ORDERED: METOCLOPRAMIDE 5 MG/ML 2 ML VIAL IVP PRN ×2 (09:04→17:38)
[2020-10-11] MEDS ORDERED: SIMETHICONE 80 MG CHEWABLE PO PRN ×2 (09:04→17:38)
[2020-10-11] MEDS ORDERED: MEASLES-MUMPS-RUBELLA VACC/PF 12,500 UNIT/0.5 ML VIAL SQ ONE (09:04)
[2020-10-11] MEDS ORDERED: diphenhydrAMINE 50 MG CAP PO PRN ×2 (09:04→17:38)
[2020-10-11] MEDS ORDERED: diphenhydrAMINE 25 MG CAP PO PRN ×2 (09:04→17:38)
[2020-10-11] MEDS: LACTATED RINGERS 1,000 ML IV SCH ×2 (09:48→17:36)
[2020-10-11] MEDS ORDERED: IBUPROFEN 600 MG TAB PO SCH (14:00)
[2020-10-11] MEDS: ACETAMINOPHEN TAB 500 MG TAB PO SCH ×3 (17:35→20:28)
[2020-10-11] MEDS ORDERED: KETOROLAC 15 MG/ML 1 ML VIAL IVP SCH (18:00)
[2020-10-11] MEDS: SENNOSIDES-DOCUSATE SODIUM 1 EACH TAB PO SCH (20:27)
[2020-10-11] MEDS: KETOROLAC 15 MG/ML 1 ML VIAL IVP SCH (23:42)
[2020-10-12] MEDS: ACETAMINOPHEN TAB 500 MG TAB PO SCH ×4 (03:48→22:58)
[2020-10-12 06:41] LABS: Basophils % (A) 0 %; Eosinophils # (A) 0.3 k/uL (0-0.7); Eosinophils % (A) 3 %; HCT 30.5 % (34.0-46.0); HGB 9.8 gm/dL (11.4-16.0); Lymphocytes # (A) 2.4 k/uL (1.0-4.8); Lymphocytes % (A) 23 %; MCH 26.7 pg (25.0-35.0); MCHC 32.1 g/dL (31.0-37.0); Mean Platelet Volume 8.4; Monocytes # (A) 0.6 k/uL (0-1.0); Monocytes % (A) 5 %; Neutrophils # (A) 6.8 k/uL (1.3-7.7); Neutrophils % (A) 66 %; Platelet Count 214 k/uL (150-450); RBC 3.67 m/uL (3.80-5.40); RDW 14.5 % (11.5-15.5); WBC 10.3 k/uL (3.8-10.6)
[2020-10-12] MEDS: KETOROLAC 15 MG/ML 1 ML VIAL IVP SCH (06:50)
--- NOTE | 2020-10-12 07:34 | P.PNOBGPC ---
Subjective - Subjective Principal diagnosis: Status post repeat section with tubal postoperative day #1 Interval history: Patient is doing okay. She is ambulating. She is passing flatus but no bowel movement yet. She has urinated without difficulty. Pain is fairly well controlled with Toradol. Lochia has been minimal. She is working on breast- feeding. Patient reports: Reports appetite normal, Reports voiding normally, Reports pain well controlled [place]: doing well, nursing well Objective - Vital Signs Latest vital signs: Vital Signs Temp Pulse Resp BP Pulse Ox 10/12/20 06:07 18 10/12/20 04:17 14 10/12/20 04:00 98.2 F 85 18 108/69 97 10/12/20 03:00 16 10/12/20 01:00 16 10/12/20 00:00 98.4 F 83 16 97/64 95 10/11/20 22:25 18 10/11/20 21:00 18 10/11/20 20:00 98.5 F 88 16 117/78 96 10/11/20 19:00 16 10/11/20 17:00 16 99 10/11/20 16:00 98.5 F 78 16 109/68 98 10/11/20 15:00 16 10/11/20 13:27 96 10/11/20 13:00 20 10/11/20 11:58 98.1 F 82 20 132/70 96 10/11/20 11:27 20 10/11/20 10:41 96.5 F L 80 16 99 10/11/20 10:11 68 16 120/64 99 10/11/20 09:41 81 16 135/67 98 10/11/20 09:26 93 16 120/56 98 10/11/20 09:11 90 16 125/57 97 10/11/20 08:56 86 16 129/64 97 10/11/20 08:41 96.9 F L 96 16 113/54 97 Intake and Output 10/11/20 10/12/20 10/12/20 22:59 06:59 14:59 Output Total 750 600 Balance -750 -600 Output: Urine 750 600 Uretheral ([place]) 600 - Exam Extremities: Present: normal. Absent: tenderness Abdomen: Present: normal appearance, soft (Positive bowel sounds 4). Absent: distention, tenderness Incision: Present: normal, dry, intact. Absent: erythematous Uterus: Present: normal, firm. Absent: tenderness - Labs Labs: Abnormal Lab Results - Last 24 Hours (Table) 10/12/20 Range/Units 06:19 RBC 3.67 L (3.80-5.40) m/uL Hgb 9.8 L (11.4-16.0) gm/dL Hct 30.5 L (34.0-46.0) % Assessment and Plan Assessment: Status post repeat low transverse section with bilateral partial segmentectomy postoperative day #1 (1) 39 weeks gestation of Current Visit: No Status: Acute Code(s): Z3A.39 - 39 WEEKS GESTATION OF SNOMED Code(s): 78384998 (2) Family planning Current Visit: No Status: Acute Code(s): Z30.09 - ENCOUNTER FOR OTH GENERAL CNSL AND ADVICE ON CONTRACEPTION SNOMED Code(s): 685931674 Plan: Will continue with postoperative care today. Patient will continue with ibuprofen and Tylenol for pain. She is unable to take [place].
[2020-10-12] MEDS: SENNOSIDES-DOCUSATE SODIUM 1 EACH TAB PO SCH ×2 (10:14→19:58)
[2020-10-12] MEDS: IBUPROFEN 600 MG TAB PO SCH ×2 (13:56→19:57)
--- NOTE | 2020-10-12 15:56 | P.PN ---
Progress Note - Text Progress Note Date: 10/12/20 Anesthesia Postop day 1 Subjective: Status Post section with Duramorph. Patient seen and examined. Doing well without complaint. VAS 2 out of 10. No nausea or vomiting. Mild pruritus now resolved. Denies fever. Gross lower extremity strength intact. . Without apparent anesthetic complications. Objective: Vital signs reviewed Heart: Regular Rate Lungs: Good chest excursion Abdomen: Appears nondistended Assessment: Status post with Duramorph postop day 1 Plan: Continue current care with your medical management.
[2020-10-13] MEDS: IBUPROFEN 600 MG TAB PO SCH ×3 (01:39→11:56)
[2020-10-13] MEDS: ACETAMINOPHEN TAB 500 MG TAB PO SCH ×2 (04:52→09:12)
[2020-10-13] MEDS: SENNOSIDES-DOCUSATE SODIUM 1 EACH TAB PO SCH (08:03)
[2020-10-13 08:10] VITALS: BP 135/78; PULSE 82; RESP 16; TEMP 98.1
--- NOTE | 2020-10-13 13:03 | P.DS ---
Providers Date of admission: 10/11/20 05:54 Expected date of discharge: 10/13/20 Attending physician: Vikki Jacobo Primary care physician: [facility] Course: Corneas doing very well postop day 2. She is involuting, voiding and tolerating her diet. She voices no complaints. Vital signs are stable and afebrile. Plan discharge home today. Prescription for Motrin was 4 to the pharmacy. All questions are answered for her prior to discharge. Discharge instructions were previously reviewed by Dr. Sweet. On physical exam vital signs are stable afebrile. Heart regular, lungs clear, extremities are without pain. Abdomen soft incisions clean dry and intact and she has bowel sounds. We'll plan removal radha prior to discharge per Dr. Sweet's orders. All the questions are answered for her at this time and she'll be discharged home later today. Plan - Discharge Summary Discharge Rx Participant: Yes New Discharge Prescriptions: New Ibuprofen [Motrin] 600 mg PO Q6HR PRN #60 tab PRN Reason: Pain No Action Pnv No.95/Ferrous Fum/Folic AC [ Multivitamin Tablet] 1 tab PO DAILY Albuterol Inhaler [Ventolin Hfa Inhaler] 2 puff INHALATION RT-TID PRN PRN Reason: asthma Discharge Medication List Pnv No.95/Ferrous Fum/Folic AC [ Multivitamin Tablet] 1 tab PO DAILY 01/22/19 [History] Albuterol Inhaler [Ventolin Hfa Inhaler] 2 puff INHALATION RT-TID PRN 09/15/20 [History] Ibuprofen [Motrin] 600 mg PO Q6HR PRN #60 tab 10/12/20 [Rx] Follow up Appointment(s)/Referral(s): Vikki Jacobo DO [Doctor of Osteopathic Medicine] - 11/21/20 11:30 am (10-18-2020 at 1:30) Activity/Diet/Wound Care/Special Instructions: Instructions 1. Do not begin any exercise program for 3 weeks. 2. Do not resume sexual relations for 3 weeks or longer if uncomfortable. 3. You may take tub baths or showers at any time. 4. You may use tampons if desired after 3 weeks. 5. Keep the area of episiotomy (stitches) clean and dry. 6. If you are not nursing, wear a good fitting, supportive bra during the day and limit fluid intake for at least 1 week to prevent breast engorgement. 7. Call the office, [phone], within the next week to make appointment for your 6 week checkup if it has not already been made. 8. Report any of the following occurrences to the doctor promptly: a. Heavy, excessive bleeding b. Chills, fever c. Burning or frequency of urination d. Pain or redness and breasts if nursing e. Increasing pain or swelling in episiotomy (stitches). In addition to the above instructions, the following additional should be followed: 1. No heavy lifting or straining (exercising) until after 6 week checkup. 2. Keep abdominal incision clean and dry: You may wear a dressing if more comfortable. 3. Make office appointment for 10 days after going home or as instructed by her doctor. Discharge Disposition: HOME SELF-CARE
== END 2020-10-13 13:25 | disposition home or self-care (01) | DRG 785 ==
LOC: 4FBP 05:54
PROVIDERS: ADMIT Obstetrics & Gynecology; ATTEND Obstetrics & Gynecology
PROC: 10D00Z1 Extraction of Products of Conception, Low, Open Approach (ICD-10-PCS; principal; 2020-10-12)
PROC: 0UB70ZZ Excision of Bilateral Fallopian Tubes, Open Approach (ICD-10-PCS; principal; 2020-10-12)
DX: O34.211 Maternal care for low transverse scar from previous cesarean delivery (principal); O99.52 Diseases of the respiratory system complicating childbirth; J45.909 Unspecified asthma, uncomplicated; O16.4 Unspecified maternal hypertension, complicating childbirth; O99.73 Diseases of the skin and subcutaneous tissue complicating the puerperium; L29.9 Pruritus, unspecified; Z30.2 Encounter for sterilization; Z88.5 Allergy status to narcotic agent; Z37.0 Single live birth; Z3A.39 39 weeks gestation of pregnancy
CPT/HCPCS: 85025; 86850; 86900; 86901; 88302; 90471; 90707

== ENCOUNTER 2021-03-06 08:49 | Emergency (ER) | payer BC, OTHER ==
[2021-03-06] MEDS ORDERED: predniSONE 20 MG TAB PO STA (09:25)
--- NOTE | 2021-03-06 09:41 | ED ---
SOB HPI - General Chief Complaint: Shortness of Breath Stated Complaint: EMRE Time Seen by Provider: 03/06/21 08:50 Source: patient Mode of arrival: ambulatory Limitations: no limitations - History of Present Illness Initial Comments: 25-year-old female past medical history of mild intermittent asthma presents to the emergency department with cough, sore throat and shortness of breath. States she has had symptoms for the past week. She has been using her rescue inhaler several times per day. States that she normally only uses the inhaler as needed which is very infrequent. She is producing white sputum. Had a fever this morning which made her call and to work. Temp was 101. Denies any sick contacts of similar symptoms. He is not vaccinated against Covid. Does not see a back stayer. Has never been admitted to the hospital for asthma. No concerns for . Cannot remember the last time she was on steroids for an asthma exacerbation. No other alleviating, precipitating or modifying factors - Related Data Home Medications Medication Instructions Recorded Confirmed Pnv No.95/Ferrous Fum/Folic AC 1 tab PO DAILY 01/22/19 10/11/20 [ Multivitamin Tablet] Albuterol Inhaler [Ventolin Hfa 2 puff INHALATION RT-TID PRN 09/15/20 10/11/20 Inhaler] Previous Rx's Medication Instructions Recorded Ibuprofen [Motrin] 600 mg PO Q6HR PRN #60 tab 10/12/20 Albuterol Inhaler [Ventolin Hfa 2 puff INHALATION RT-QID #8 gm 03/06/21 Inhaler] predniSONE [Deltasone] 20 mg PO BID #10 tab 03/06/21 Allergies Allergy/AdvReac Type Severity Reaction Status Date / Time hydrocodone [From [place]] Allergy Swelling Verified 03/06/21 08:50 Review of Systems ROS Statement: Those systems with pertinent positive or pertinent negative responses have been documented in the HPI. ROS Other: All systems not noted in ROS Statement are negative. Past Medical History Past Medical History: Asthma, Hypertension Additional Past Medical History / Comment(s): high BP end of first , History of Any Multi-Drug Resistant Organisms: None Reported Past Surgical History: Section Past Anesthesia/Blood Transfusion Reactions: No Reported Reaction Past Psychological History: No Psychological Hx Reported Smoking Status: Never smoker Past Alcohol Use History: None Reported Past Drug Use History: None Reported - Past Family History Mother Family Medical History: No Reported History Father Family Medical History: Asthma General Exam Limitations: no limitations General appearance: alert, in no apparent distress Head exam: Present: atraumatic, normocephalic, normal inspection Eye exam: Present: normal appearance, PERRL, EOMI. Absent: scleral icterus, conjunctival injection, periorbital swelling ENT exam: Present: normal exam, mucous membranes moist Neck exam: Present: normal inspection. Absent: tenderness, meningismus, lymphadenopathy Respiratory exam: Present: normal lung sounds bilaterally. Absent: respiratory distress, wheezes, rales, rhonchi, stridor Cardiovascular Exam: Present: regular rate, normal rhythm, normal heart sounds. Absent: systolic murmur, diastolic murmur, rubs, gallop, clicks GI/Abdominal exam: Present: soft, normal bowel sounds. Absent: distended, tenderness, guarding, rebound, rigid Extremities exam: Present: normal inspection, full ROM, normal capillary refill. Absent: tenderness, pedal edema, joint swelling, calf tenderness Back exam: Present: normal inspection Neurological exam: Present: alert, oriented X3, CN II-XII intact Psychiatric exam: Present: normal affect, normal mood Skin exam: Present: warm, dry, intact, normal color. Absent: rash Course Vital Signs 03/06/21 03/06/21 03/06/21 08:50 09:41 10:44 Temperature 97.8 F 98.2 F Pulse Rate 83 89 Respiratory 18 20 18 Rate Blood Pressure 137/83 135/84 O2 Sat by Pulse 99 97 Oximetry Medical Decision Making - Medical Decision Making Upon arrival the patient is placed into room 19. A thorough history and physical exam is performed. Patient does not demonstrate any increased work of breathing. Patient was swabbed for Covid. Chest x-ray was performed which demonstrates no acute process. Patient was given 60 mg of prednisone. I will place her on 5 days worth of prednisone and refill her inhaler. She is to follow up with her doctor to 4 days. Return to the emergency room for any new or worsening symptoms. She is requesting a Covid send out test for confirmation which is sent. Patient discharged home in stable condition - Lab Data Lab Results 03/06/21 03/06/21 Range/Units 09:35 10:18 Coronavirus (PCR) Not Detected Not Detected (Not Detectd) Disposition Clinical Impression: Asthma exacerbation Disposition: HOME SELF-CARE Condition: Stable Instructions (If sedation given, give patient instructions): Asthma (ED) Additional Instructions: Please follow-up with your primary care doctor within 2-4 days. Take the steroids as directed. Return to the emergency room for any new or worsening symptoms Prescriptions: predniSONE [Deltasone] 20 mg PO BID #10 tab Albuterol Inhaler [Ventolin Hfa Inhaler] 2 puff INHALATION RT-QID #8 gm Is patient prescribed a controlled substance at d/c from ED?: No Referrals: Clarence Willingham MD [Primary Care Provider] - 1-2 days Time of Disposition: 10:38
--- NOTE | 2021-03-06 10:04 | XR ---
EXAMINATION TYPE: XR chest 2V DATE OF EXAM: 03/06/2021 COMPARISON: NONE HISTORY: Chest pain TECHNIQUE: Frontal and lateral views of the chest are obtained. FINDINGS: There is no focal air space opacity. No evidence for pneumothorax. No pleural effusion. The cardiac silhouette size is within normal limits. The osseous structures are grossly intact. IMPRESSION: 1. No acute cardiopulmonary process.
[2021-03-06 10:45] VITALS: BP 135/84; PULSE 89; RESP 18; TEMP 98.2
== END 2021-03-06 10:45 | disposition home or self-care (01) ==
LOC: EC 08:49
DX: J45.901 Unspecified asthma with (acute) exacerbation (principal); I10 Essential (primary) hypertension; Z79.51 Long term (current) use of inhaled steroids
CPT/HCPCS: 87635; 71046; 99285; U0003; J7512; 99283